=== PATIENT | male | born 1935 | race Caucasian/White ===

== ENCOUNTER 2018-03-11 10:18 | Emergency (ER) | payer MEDICARE, BC ==
[2018-03-11 10:58] VITALS: BP 134/79
--- NOTE | 2018-03-11 11:41 | UC ---
General HPI - HPI Summary HPI Summary: slipped on ice in his driveway sunday am and fell. hit L elbow. also notes swelling and discomfort L wrist with tingling in fingers on the tips. denies head injury, neck pain and any other injuries. - History of Current Complaint Chief Complaint: UCUpperExtremity Stated Complaint: LEFT WRIST INJURY Time Seen by Provider: 03/11/18 11:31 Hx Obtained From: Patient Onset/Duration: Gradual Onset Timing: Constant Pain Intensity: 0 - Allergy/Home Medications Allergies/Adverse Reactions: Allergies Allergy/AdvReac Type Severity Reaction Status Date / Time No Known Allergies Allergy Verified 03/11/18 10:51 Home Medications: Home Medications NK [No Home Medications Reported] 03/11/18 [History Confirmed 03/11/18] PMH/Surg Hx/FS Hx/Imm Hx Previously Healthy: Yes - Surgical History Surgical History: Yes Surgery Procedure, Year, and Place: L3-5 fusion. L finger amputation. appy - Family History Known Family History: Positive: Non-Contributory - Social History Lives: With Family Alcohol Use: Occasionally Substance Use Type: None Smoking Status (MU): Never Smoked Tobacco - Immunization History Vaccination Up to Date: Yes Review of Systems All Other Systems Reviewed And Are Negative: Yes Constitutional: Positive: Negative Skin: Positive: Negative Eyes: Positive: Negative ENT: Positive: Negative Respiratory: Positive: Negative Cardiovascular: Positive: Negative Gastrointestinal: Positive: Negative Genitourinary: Positive: Negative Motor: Positive: Negative Neurovascular: Positive: Negative Musculoskeletal: Positive: Other: - bruise l elbow and pain l wrist Neurological: Positive: Paresthesia - L fingers Psychological: Positive: Negative Physical Exam Triage Information Reviewed: Yes Appearance: Well-Appearing Vital Signs: Initial Vital Signs Temp 97.7 F 03/11/18 10:52 Pulse 63 03/11/18 10:52 Resp 15 03/11/18 10:52 BP 134/79 03/11/18 10:52 Pulse Ox 98 03/11/18 10:52 Vital Signs Reviewed: Yes Eyes: Positive: Conjunctiva Clear ENT: Positive: Normal ENT inspection Neck: Positive: Supple, Nontender, No Lymphadenopathy, Other: - c-spine non tender. Respiratory: Positive: Lungs clear, Normal breath sounds Cardiovascular: Positive: RRR, No Murmur Abdomen Description: Positive: Nontender, No Organomegaly, Soft Bowel Sounds: Positive: Present Musculoskeletal: Positive: Other: - LUE=SHOULDER NON TENDER. ELBOW WITH PURPLE BRUISING JUST DISTAL TO OLECRANON PROCESS BUT ROM INTACT. FOREARM NON TENDER. WRIST WITH MILD SWELLING AND MODERATE TENDERNESS OVER SNUFF BOX. HAND WITH MILD SWELLING, NON TENDER AND GROSS V/M INTACT. PT NOTES THE TINGL TO FINGER TIPS BUT GROSS SENSATION INTACT. Neurological: Positive: Muscle Tone Normal Psychological: Positive: Age Appropriate Behavior Skin Exam: Normal Diagnostics - Radiology No standard instances Radiology Interpretation Completed By: Radiologist - IMPRESSION: THERE IS A JOINT EFFUSION PRESENT. NO FRACTURE IS SEEN. RECOMMEND A FOLLOW-UP X-RAY STUDY OF THE ELBOW IN 7-10 DAYS TO EXCLUDE A RADIOGRAPHICALLY OCCULT FRACTURE. L wrist=IMPRESSION: SOFT TISSUE SWELLING, NO FRACTURE IS SEEN. IF THE PATIENT'S SYMPTOMS PERSIST RECOMMEND FOLLOW-UP IMAGING. Course/Dx - Course Course Of Treatment: NO OVERT FX'S WILL TX FOR POSSIBLE OCCULT SCAPHOID FX L WRIST AND REFER TO ORTHPEDICS FOR THAT AND ELBOW EFFUSION. - Diagnoses Provider Diagnosis: Effusion of elbow joint, left, Sprain of wrist, left, Paresthesia of hand Discharge - Sign-Out/Discharge Documenting (check all that apply): Patient Departure All imaging exams completed and their final reports reviewed: Yes - Discharge Plan Condition: Stable Disposition: HOME Patient Education Materials: Swollen Joint (ED), Wrist Sprain (ED), Paresthesia (ED) Referrals: Mansoor Rosales MD [Medical Doctor] - As Soon As Possible Additional Instructions: DIAGNOSIS: LEFT ELBOW EFFUSION(FLUID IN JOINT). SPRAIN L WRIST WITH POSSIBLE SCAPHOID FRACTURE(OCCULT). PARESTHESIA L FINGERS. WEAR THUMB SPLINT AT ALL TIMES UNTIL CLEARED BY ORTHOPEDICS - Billing Disposition and Condition Condition: STABLE Disposition: Home
== END 2018-03-11 12:44 | disposition home or self-care (01) ==
LOC: UCCORT 10:18
DX: M25.422 Effusion, left elbow (principal); S63.502A Unspecified sprain of left wrist, initial encounter; W00.2XXA Other fall from one level to another due to ice and snow, initial encounter; Y92.008 Other place in unspecified non-institutional (private) residence as the place of occurrence of the external cause; R20.2 Paresthesia of skin
CPT/HCPCS: 99202; G0463